=== PATIENT | female | born 1985 | race Caucasian/White ===

== ENCOUNTER 2023-11-30 09:51 | Emergency (ER) | payer OTHER ==
[~2023-11-30] VITALS: Ht 157.5 cm; Wt 81.6 kg
[2023-11-30 09:54] VITALS: BP 133/91; PULSE 85; RESP 18; TEMP 97.6; O2SAT 99
[2023-11-30] MEDS: DEXAMETHASONE 10 MG/ML VIAL IM ONE (11:02)
[2023-11-30] MEDS: KETOROLAC 60 MG/2 ML VIAL IM ONE (11:02)
[2023-11-30] MEDS ORDERED: CYCL-711 PO (12:22)
[2023-11-30] MEDS ORDERED: MELO-176 PO (12:22)
[2023-11-30 12:45] VITALS: BP 133/91; PULSE 85; RESP 18; TEMP 97.6; O2SAT 99
== END 2023-11-30 12:45 | disposition home or self-care (01) ==
LOC: MED 09:51
DX: S39.012A Strain of muscle, fascia and tendon of lower back, initial encounter (principal); Z79.899 Other long term (current) drug therapy; X50.9XXA Other and unspecified overexertion or strenuous movements or postures, initial encounter; Y93.89 Activity, other specified; Y92.89 Other specified places as the place of occurrence of the external cause; Y99.8 Other external cause status
CPT/HCPCS: 72110; 81025; 96372; 99284; J1100; J1885